=== PATIENT | male | born 1990 | race Caucasian/White ===

== ENCOUNTER 2017-08-28 06:27 | Outpatient (CLI) | payer BC ==
[2017-08-28] VITALS (19 sets, daily range): BP systolic 99–132; BP diastolic 67–97
== END 2017-08-28 23:59 | disposition home or self-care (01) ==
LOC: CARD DIAG 06:27
PROVIDERS: ATTEND Physician Assistant
DX: R42 Dizziness and giddiness (principal); R55 Syncope and collapse
CPT/HCPCS: 93660